=== PATIENT | male | born 1990 | race Caucasian/White ===

== ENCOUNTER 2024-11-12 16:12 | Emergency (ER) | payer OTHER ==
[~2024-11-12] VITALS: Ht 172.7 cm; Wt 88.6 kg
[2024-11-12 16:24] VITALS: TEMP 97
--- NOTE | 2024-11-12 16:29 | ELECTROCARDIOGRAPH REPORT ---
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 Kenneth Acuna Measurements Intervals [place] Rate: 71 P: 33 VT: 151 QRS: 34 QRSD: 107 T: 27 QT: 380 QTc: 413 Interpretive Statements Sinus rhythm ST elevation suggests acute pericarditis Electronically Signed On 11-13-2024 6:49:[address] Kenneth Acuna Please click the below link to view image of tracing.
--- NOTE | 2024-11-12 16:54 | RADIOLOGY REPORT ---
EXAM: DI CHEST,SINGLE VIEW HISTORY: CP COMPARISON: None TECHNIQUE: Portable upright AP view of the chest was performed. FINDINGS: No pneumothorax, consolidative infiltrates, or pulmonary edema. The heart is not enlarged. There is m ild thoracic degenerative disc disease. IMPRESSION: No acute intrathoracic process.
[2024-11-12 17:13] LABS: BASOPHILS # (AUTO) 0.1 X10'3 (0-0.2); EOSINOPHILS # (AUTO) 0.5 X10'3 (0-0.9); MONOCYTES # (AUTO) 0.7 X10'3 (0-0.9); WHITE BLOOD COUNT 7.7 X10'3 (4.5-11.0)
[2024-11-12 17:15] LABS: EOSINOPHILS % (AUTO) 5.9 % (0-6); HEMATOCRIT 40.7 % (42.0-52.0); HEMOGLOBIN 13.8 g/dl (14.0-17.9); LYMPHOCYTES % (AUTO) 25.5 % (21-51); MEAN CORPUSCULAR HEMOGLOBIN 30.2 PG (27.0-31.0); MEAN CORPUSCULAR HGB CONC 33.9 g/dL (33.0-36.5); MEAN CORPUSCULAR VOLUME 89.1 FL (78-98); MONOCYTES % (AUTO) 9.6 % (2-12); NEUTROPHILS # (AUTO) 4.5 X10'3 (1.8-7.7); PLATELET COUNT 242 X10'3 (140-440); RED BLOOD COUNT 4.57 X10'6 (4.70-6.10); RED CELL DISTRIBUTION WIDTH 12.6 % (11.5-14.5)
--- NOTE | 2024-11-12 17:49 | Physician Documentation ---
History of Present Illness ~ Chief Complaint: Syncope Stated Complaint: SEE CHIEF COMPLAINT Time Seen by MD: 17:39 OK to notify your PCP?: Yes Source: patient Mode of Arrival: POV Exam Limitations: no limitations HPI Mo is a 34-year-old male who was at our hospital upstairs in the ICU visiting someone and began to feel lightheaded and dizzy while standing at that patient's bedside. He then decided to sit down in his lightheadedness started to subside so he sought he could walk outside and get some fresh air and maybe feel better. As he was walking outside of the ICU he had a syncopal episode in the hallway and hit his forehead. No thinners. He reports having other syncopal episodes in his life due to either medications or stressful situations. He denies any neck or back pain or dizziness, shortness of breath, chest pain or abdominal pain. Medication Reconciliation Allergies: Coded Allergies: No Known Allergies (Unverified , 11/12/24) Past Medical History Past Medical History: No Pertinent History Review of Systems All Other Systems at this time: Reviewed and Negative Physical Exam Vital Signs: RN Vital Signs have been reviewed: Yes, Temperature: 97.0, Source: Temporal, Heart Rate: 61, Respiratory Rate: 15, BP: 118/74, Pulse Oximetry: 100, Weight: 88.640 Pulse Oximetry Reflects: adequate oxygenation Physical Exam General: Alert, no apparent distress. HEENT: PERRL, EOMI, no injection, moist mucous membranes. Neck: Full range of motion. Nontender Respiratory: Lungs clear, no respiratory distress. Chest: No accessory muscle use. Cardiovascular: Regular rate and rhythm, no murmurs. Gastrointestinal: Soft, nontender, nondistended. Bowels sounds present. Extremities: Normal range of motion, no deformity. Back: No CVA tenderness. No step-offs, nontender spine. Neurologic: Oriented x4. Psychiatric: Normal mood and affect. Skin: Normal color, warm and dry. Edema and tenderness to right forehead. Progress Results/Orders Reviewed/noted all lab results: Yes Results/Orders Completed Orders - NADIA CLIFTON Ibuprofen Tablet (Motrin Tablet) (11/12/24 17:55) Medications Received in ER Medications (Trade) Dose Ordered Sig/Melissa Route PRN Reason Start Time Stop Time Status Last Admin Dose Admin (Motrin tablet) 800 mg ONCE ONCE PO 11/12/24 17:55 11/12/24 17:56 DC 11/12/24 18:00 800 MG Vital Signs 11/12/24 11/12/24 11/12/24 11/12/24 16:24 16:57 18:02 18:04 Temp 97.0 Pulse 70 61 69 Resp 17 15 15 15 B/P (MAP) 107/67 118/74 (89) 126/70 (88) Pulse Ox 100 100 100 Laboratory Tests Test 11/12/24 16:39 11/12/24 17:43 11/12/24 18:23 White Blood Count 7.7 Red Blood Count 4.57 L Hemoglobin 13.8 L Hematocrit 40.7 L Mean Corpuscular Volume 89.1 Mean Corpuscular Hemoglobin 30.2 Mean Corpuscular Hemoglobin Concent 33.9 Red Cell Distribution Width 12.6 Platelet Count 242 Mean Platelet Volume 8.0 Neutrophils (%) (Auto) 58.0 Lymphocytes (%) (Auto) 25.5 Monocytes (%) (Auto) 9.6 Eosinophils (%) (Auto) 5.9 Basophils (%) (Auto) 1.0 Neutrophils # (Auto) 4.5 Lymphocytes # (Auto) 2.0 Monocytes # (Auto) 0.7 Eosinophils # (Auto) 0.5 Basophils # (Auto) 0.1 CBC Comment Chemistry Comments Sodium Level 139 Potassium Level 3.7 Chloride Level 102 Carbon Dioxide Level 29.4 Anion Gap 8 Blood Urea Nitrogen 19 H Creatinine 0.91 Estimated GFR/1.73 m2 > 90 BUN/Creatinine Ratio 20.9 H Glucose Level 115 H Calcium Level 9.0 Total Bilirubin 0.9 Aspartate Amino Transf (AST/SGOT) 15 Alanine Aminotransferase (ALT/SGPT) 34 Alkaline Phosphatase 104 Troponin I High Sensitivity < 4 L 4 Troponin I High Sens Percent Delta Troponin I Hi Sens Absolute Change Pro-B-Type Natriuretic Peptide 57 Total Protein 7.3 Albumin 4.2 Globulin 3.1 Albumin/Globulin Ratio 1.4 EKG/XRAY/CT/US/VASC/MRI EKG : Additional Comment Electrocardiogram: as interpreted by me; normal sinus rhythm, no axis deviation, no acute ischemia, normal intervals, no pre-excitation pattern. Rate: 71 bpm. Chest X-Ray : Additional Comments Chest x-ray: as interpreted by me; no large effusion, no large infiltrate, normal mediastinum. 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 No acute fracture or intracranial bleed. Medical Decision Making Findings Mo is a 34-year-old male who had a syncopal episode while visiting a loved 1 in our ICU. He admits to feeling dizzy while standing at the bedside so he sat down started to feel better and decided to walk outside and get some fresh air and on the way doing this as when he had a syncopal episode and hit his right forehead. He has a history of syncopal events from either medications or stressful events. He takes no medications at home no medical history. No chest pain or shortness of breath. On exam there is some edema, tenderness and erythema to the right forehead and the skin is intact. We have ordered a head CT to rule out an intracranial bleed. We have also ordered an EKG and some basic lab work to rule out a cardiac event or electrolyte abnormality. I have ordered ibuprofen to help him with pain and swelling. 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 I have shared these results with the patient so he can take these to his primary care to follow up. This episode was likely vasovagal as his labs have come back normal as well. He should follow up with his primary care provider in the next 3 days and return back here for any new or worsening symptoms. He may have a headache from his fall which he can take Tylenol and ibuprofen for. We also discussed that as he hit his head on hard elvia he may have sustained a concussion. We went over concussion precautions and he was advised to do his best not to hit his head again. He plans on staying at his parents house for tonight. Differential Dx:Considerations: Include: anemia, CVA, dehydration, electrolyte disorder, hypovolemia, TIA Additional Information Skull fracture or intracranial bleed. 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 Bilateral ethmoid and left sphenoid sinus disease. No acute fracture or intracranial bleed. Please bring these results to your primary care provider to discuss further options, follow up with your primary care in the next 3 days. You may have a headache from your fall you can use Tylenol and ibuprofen for pain relief. You can return back here for any new or worsening symptoms. Please stay hydrated. Please take care not to hit your head again within the next 6 weeks. As you may have sustained a concussion. Referrals: NO PRIMARY CARE PROVIDER (PCP) Education Educated: Patient Educated regarding: diagnosis, treatment, prognosis, need for follow up Signature Scribe Signature: . Attestation: Scribed for Nadia Clifton Nursing Program Director by Nadia Grimaldo NP . 11/12/24 18:43 NADIA CLIFTON WREATH INSPECTOR November 12, 2024 17:49
[2024-11-12] MEDS: ibuprofen tablet 400 MG TABLET PO ONE (18:00)
[2024-11-12 18:04] VITALS: BP 126/70; PULSE 69; RESP 15; O2SAT 100
[2024-11-12 18:11] LABS: ALANINE AMINOTRANSFERASE 34 U/L (12-78); ALBUMIN 4.2 G/DL (3.4-5.0); ALBUMIN/GLOBULIN RATIO 1.4 (1.1-1.5); ALKALINE PHOSPHATASE 104 IU/L (46-116); ANION GAP 8 (8-16); ASPARTATE AMINO TRANSFERASE 15 U/L (10-37); BILIRUBIN,TOTAL 0.9 MG/DL (0.1-1.0); BLOOD UREA NITROGEN 19 MG/DL (7-18); BUN/CREATININE RATIO 20.9 (10.0-20.0); CHLORIDE 102 MMOL/L (99-107); CREATININE 0.91 MG/DL (0.60-1.10); GLUCOSE 115 MG/DL (70-104); POTASSIUM 3.7 MMOL/L (3.5-5.1); SODIUM 139 MMOL/L (135-145); TOTAL CARBON DIOXIDE 29.4 MMOL/L (24-32); TOTAL PROTEIN 7.3 G/DL (6.4-8.2); eCRCL 109 ML/MIN; eGFR > 90 ML/MIN
[2024-11-12 18:18] LABS: PRO BRAIN NATRIURETIC PEPTIDE 57 PG/ML (0-125)
--- NOTE | 2024-11-12 18:22 | RADIOLOGY REPORT ---
Procedure: CT CT HEAD Study Date and Requested Time: 11/12/2024 05:45 PM History: HEAD STRIKE Comparison: None Dose: CTDI: 69.51 mGy DLP: 1241.29 mGycm Technique: Multiplanar images obtained through the brain without intravenous contrast. Findings: Normal brain volume and formation. No hemorrhages, masses, mass effect, midline shift, herniation or cytotoxic edema following a large v ascular territory. No intra-axial or extra-axial fluid collections. No evidence of hydrocephalus. The basal cisterns are patent. The pituitary gland, sella and parasellar regions are unremarkable. 5 mm ectopia of the left cerebell ar tonsil below the plane of the foramen magnum. The cerebellum is unremarkable. The orbits and globes are unremarkable. Mild mucoperiosteal thickening of the ethmoid air cells and l eft sphenoid sinus. Otherwise, the paranasal sinuses and mastoids are clear. There are no worrisome calvarial lesions. Impression: No evidence of acute intracranial abnormality. 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 Bilateral ethmoid and left sphenoid sinus disease
== END 2024-11-12 18:52 | disposition home or self-care (01) ==
LOC: ER 16:13
DX: R55 Syncope and collapse (principal); S06.0X0A Concussion without loss of consciousness, initial encounter; Y93.01 Activity, walking, marching and hiking; X58.XXXA Exposure to other specified factors, initial encounter; Y92.89 Other specified places as the place of occurrence of the external cause; Y99.8 Other external cause status
CPT/HCPCS: 36415; 70450; 71045; 80053; 83880; 84484; 85025; 93005; 99285